=== PATIENT | male | born 1980 | race Caucasian/White ===

== ENCOUNTER 2018-02-22 19:35 | Inpatient (IN) | END 2018-02-26 16:45 | disposition home or self-care (01) | DRG 872 ==

== ENCOUNTER 2018-03-12 13:06 | Emergency (ER) | END 2018-03-12 15:14 | disposition home or self-care (01) ==

== ENCOUNTER 2018-03-18 22:46 | Emergency (ER) | END 2018-03-19 04:40 | disposition home or self-care (01) ==

== ENCOUNTER 2018-08-25 12:07 | Emergency (ER) | END 2018-08-25 14:56 | disposition home or self-care (01) ==

== ENCOUNTER 2018-09-09 13:50 | Emergency (ER) | END 2018-09-09 17:34 | disposition left against medical advice (07) ==

== ENCOUNTER 2018-09-10 09:47 | Emergency (ER) | END 2018-09-10 12:47 | disposition home or self-care (01) ==

== ENCOUNTER 2018-12-16 14:07 | Emergency (ER) | payer OTHER ==
[~2018-12-16] VITALS: Ht 172.7 cm; Wt 90.4 kg
[~2018-12-16 14:07] MED LIST: ACET500C5 PO; CIPR500T4 PO; CLOT30CR35 TOP; DOCU-144 PO; IBUP800T48 PO; METR500T PO; ZOLP10TA PO
[2018-12-16 14:11] VITALS: Ht 172.7 cm; Wt 90.4 kg
--- NOTE | 2018-12-16 16:52 | ERD ---
ER Documentation Chief Complaint Chief Complaint L thumb pain/numbness d/t handcuffs placed on L wrist 2 wks ago HPI 38-year-old male with no significant past medical or surgical history who presents to the ED with a complaint of right thumb numbness. [facility] he was arrested 2 weeks ago on December 05 after domestic incident in his home. [facility] police were a little rough with him with the handcuffs and placed into tight. Since that time he has had numbness to the lateral aspect of the right thumb. He denies pain and has full range of motion to his hand and thumb. He denies any other injuries. ROS All systems reviewed and are negative except as per history of present illness. Medications Home Meds Active Scripts Zolpidem Tartrate* (Ambien*) 10 Mg Tablet, 10 MG PO QHS PRN for INSOMNIA, #7 TAB Prov:SANTI GARCIA MD 09/10/18 Acetaminophen* (Tylophen*) 500 Mg Capsule, 1 CAP PO Q6H PRN for PAIN AND OR ELEVATED TEMP, #20 CAP Prov:SANTI GARCIA MD 09/10/18 Docusate Sodium* (Colace*) 100 Mg Capsule, 100 MG PO BID for 7 Days, #30 CAP Prov:SANTI GARCIA MD 09/10/18 Metronidazole* (Flagyl*) 500 Mg Tablet, 500 MG PO TID for 7 Days, TAB Prov:SANTI GARCIA MD 09/10/18 Ciprofloxacin Hcl* (Ciprofloxacin Hcl*) 500 Mg Tablet, 500 MG PO BID for 7 Days, TAB Prov:SANTI GARCIA MD 09/10/18 Ibuprofen* (Motrin*) 800 Mg Tab, 800 MG PO Q6, #30 TAB Prov:SUZANNA LISA PA-C 08/25/18 Ibuprofen* (Motrin*) 800 Mg Tab, 800 MG PO Q6H PRN for PAIN AND OR ELEVATED TEMP, #30 TAB Prov:RADHA HARLEY NP 03/19/18 Acetaminophen* (Tylophen*) 500 Mg Capsule, 1 CAP PO Q6H PRN for PAIN AND OR ELEVATED TEMP, #20 CAP Prov:EDER MARIAC 03/12/18 Ciprofloxacin Hcl* (Ciprofloxacin Hcl*) 500 Mg Tablet, 500 MG PO BID for 7 Days, TAB Prov:EDER MARIA PA-C 03/12/18 Metronidazole* (Flagyl*) 500 Mg Tablet, 500 MG PO TID for 7 Days, TAB Prov:CANDACEEDER PA-C 03/12/18 Clotrimazole* (Lotrimin*) 1%-30 Gm Cream..g., 1 APPLIC TOP TWICE A DAY for 7 Days, #1 TUB Apply to penile foreskin irritation. Prov:WINKLER,SANDEE V[employer] HOU[employer]KEEP[employer] AIDE 02/26/18 Metronidazole* (Flagyl*) 500 Mg Tablet, 500 MG PO Q8 for 7 Days, #21 TAB Prov:WINKLER,SANDEE V[employer] HOUSEKEEPING AIDE 02/26/18 Ciprofloxacin Hcl* (Ciprofloxacin Hcl*) 500 Mg Tablet, 500 MG PO BID, #14 TAB Prov:WINKLER,SANDEE V[employer] HOU[employer]KEEPING AIDE 02/26/18 Allergies Allergies: Coded Allergies: No Known Allergy (Unverified , 12/16/18) PMhx/Soc History of Surgery: Yes (Appendectomy) Hx Alcohol Use: Yes (used to be an alcholic drinker) Hx Substance Use: No Hx Tobacco Use: No Smoking Status: Never smoker FmHx Family History: No diabetes, No coronary disease, No other Physical Exam Vitals Vital Signs Date Temp Pulse Resp B/P (MAP) Pulse Ox O2 O2 Flow FiO2 Time Delivery Rate 12/16/18 98.5 81 20 119/70 97 Room Air 17:23 (86) 12/16/18 98.5 94 20 125/72 95 14:11 (89) Physical Exam I have reviewed the triage vital signs. Const: Well nourished, well developed, appears stated age HENT: NCAT, Neck supple without meningismus CV: RRR, Warm, well-perfused extremities RESP: CTAB, Unlabored respiratory effort GI: soft, non-tender, non-distended, no masses MSK: No gross deformities appreciated, moving R thumb without issue full ROM, no tenderness to palpation or on ROM, no edema or sign of injury, reported numbness to R thumb compared to L thumb, SILT throughout otherwise, 5/5 strength b/l to hand/UE Skin: Warm, dry. No rashes Neuro: Alert, grossly intact. Sensation and motor function of extremities grossly intact. Psych: Appropriate mood and affect. Procedures/MDM 38-year-old patient who presents with plan of right thumb numbness. He has some numbness to the lateral aspect of right thumb but no signs of obvious injury. He has full range of motion to hand and thumb and reports no pain. Doubt fracture to right hand given history and exam. ED course: Xray of R hand without acute findings Please follow-up with your doctor (or the doctor you were referred to) in the next 2-3 days.ou may also use motrin and tylenol as needed for fever and/or pain unless instructed otherwise by your provider or nurse. If you continued to have numbness to right hand you may require specialist referral. Indications for more urgent follow-up have been discussed, but you may return to the Emergency Department at ANY time for any worrisome or worsening symptoms. I Departure Condition: Stable HELENA METZGER PA-C Dec 16, 2018 16:52
[2018-12-16 17:23] VITALS: BP 119/70; PULSE 81; RESP 20
== END 2018-12-16 17:25 | disposition home or self-care (01) ==
LOC: FTE 14:07
DX: R20.0 Anesthesia of skin (principal)
CPT/HCPCS: 73130; Z7502